=== PATIENT | male | born 1975 | race Caucasian/White ===

== ENCOUNTER 2017-08-12 12:24 | Observation (INO) | payer OTHER ==
[~2017-08-12] VITALS: Ht 177.8 cm; Wt 87.0 kg
[2017-08-12 13:28] VITALS: BP 129/79; PULSE 86; RESP 20; TEMP 97.7; O2SAT 99
[2017-08-12 15:26] LABS: AUTOMATED NEUTROPHIL # 3.7 TH/MM3 (1.8-7.7); BASOPHIL % 0.6 % (0.0-2.0); EOSINOPHIL % 0.3 % (0.0-4.0); HEMATOCRIT 40.3 % (39.0-51.0); HEMO FLAGS DIFF FINAL; LYMPH % 23.8 % (9.0-44.0); LYMPHOCYTE # 1.3 TH/MM3 (1.0-4.8); MEAN CELL VOLUME 93.1 FL (80.0-100.0); MEAN CORPUSCULAR HEMOGLOBIN 31.7 PG (27.0-34.0); NEUT % 66.3 % (16.0-70.0); PLATELET COUNT 212 TH/MM3 (150-450); RED BLOOD COUNT 4.33 MIL/MM3 (4.50-5.90); RED CELL DISTRIBUTION WIDTH 12.4 % (11.6-17.2); WHITE BLOOD COUNT 5.6 TH/MM3 (4.0-11.0)
[2017-08-12] MEDS ORDERED: ZANT150T2 PO (15:26)
[2017-08-12] MEDS ORDERED: MORPHINE SULFATE 2 MG/ML INJ IV PRN (15:30)
[2017-08-12] MEDS ORDERED: DIATRIZOATE MEGLUM/DIATRIZOATE SOD 9 ML CUP PO ONE (15:30)
[2017-08-12] MEDS ORDERED: ONDANSETRON HCL 4 MG/2 ML VIAL IV PUSH PRN (15:30)
[2017-08-12 15:40] LABS: POTASSIUM 3.8 MEQ/L (3.5-5.1)
[2017-08-12 16:00] VITALS: BP 132/77; PULSE 65; RESP 20; TEMP 97.2; O2SAT 100
[2017-08-12] MEDS: METRONIDAZOLE 500 MG/100 ML ISONTONIC SOLN IV SCH ×2 (16:29→21:55)
[2017-08-12] MEDS ORDERED: LEVOFLOXACIN 750 MG/DEXTROSE 150 ML IV SCH (17:00)
[2017-08-12] MEDS ORDERED: IOHEXOL 350 MG/ML 10 ML VIAL (for RAD DIAG) IVCONTRAST ONE (18:58)
--- NOTE | 2017-08-12 19:04 | RADRPT ---
EXAM DATE/TIME: 08/12/2017 18:45 [place] COMPARISON: No previous studies available for comparison. INDICATIONS : Lower abdomen pain, appendicitis. Post antibiotics. IV CONTRAST: 95 cc Omnipaque 350 (iohexol) IV ORAL CONTRAST: Prescribed oral contrast ingested. RADIATION DOSE: 7.49 CTDIvol (mGy) MEDICAL HISTORY : None SURGICAL HISTORY : None. ENCOUNTER: Initial ACUITY: 1 day PAIN SCALE: 8/10 LOCATION: Right lower quadrant TECHNIQUE: Volumetric scanning of the abdomen and pelvis was performed. Using automated exposure control and ad justment of the mA and/or kV according to patient size, radiation dose was kept as low as reasonably achievable to obtain optimal diagnostic quality images. DICOM format image data is available electro nically for review and comparison. FINDINGS: LOWER LUNGS: The visualized lower lungs are clear. LIVER: Homogeneous density without lesion. There is no dilation of the biliary tree. No calcified gallston es. SPLEEN: Normal size without lesion. PANCREAS: Within normal limits. KIDNEYS: Normal in size and shape. There is no solid mass, stone or hydronephrosis. There is a cyst in the lo wer pole of the right kidney. ADRENAL GLANDS: Within normal limits. VASCULAR: There is no aortic aneurysm. BOWEL/MESENTERY: The stomach, small bowel, and colon demonstrate no acute abnormality. There is no free intraperitone al air or fluid. The appendix is unremarkable in appearance with no evidence of appendicolith or infl ammatory change. The terminal ileum is within normal limits. There are scattered diverticuli greatest in the sigmoid colon. ABDOMINAL WALL: Within normal limits. RETROPERITONEUM: There is no lymphadenopathy. BLADDER: No wall thickening or mass. REPRODUCTIVE: Within normal limits. INGUINAL: There is no lymphadenopathy or hernia. MUSCULOSKELETAL: Within normal limits for patient age. CONCLUSION: 1. The appendix is unremarkable in appearance. 2. Mild diverticulosis. Solo Cleaning MD on August 12, 2017 at 18:59 Board Certified Radiologist. This report was verified electronically.
[2017-08-12 20:25] VITALS: BP 116/67; PULSE 88; RESP 18; TEMP 98.2; O2SAT 96
--- NOTE | 2017-08-12 20:31 | HHI.PR ---
Subjective Subjective Notes Persistent RLQ pain. Mild nausea after flagyl. Objective Vitals/I&O Vital Signs Date Time Temp Pulse Resp B/P (MAP) Pulse Ox O2 Delivery O2 Flow Rate FiO2 08/12/17 20:25 98.2 88 18 116/67 (83) 96 Labs Laboratory Tests Test 08/12/17 15:08 White Blood Count 5.6 Red Blood Count 4.33 Hemoglobin 13.7 Hematocrit 40.3 Mean Corpuscular Volume 93.1 Mean Corpuscular Hemoglobin 31.7 Mean Corpuscular Hemoglobin Concent 34.0 Red Cell Distribution Width 12.4 Platelet Count 212 Mean Platelet Volume 8.3 Neutrophils (%) (Auto) 66.3 Lymphocytes (%) (Auto) 23.8 Monocytes (%) (Auto) 9.0 Eosinophils (%) (Auto) 0.3 Basophils (%) (Auto) 0.6 Neutrophils # (Auto) 3.7 Lymphocytes # (Auto) 1.3 Monocytes # (Auto) 0.5 Eosinophils # (Auto) 0.0 Basophils # (Auto) 0.0 CBC Comment DIFF FINAL Differential Comment Blood Urea Nitrogen 9 Creatinine 0.83 Random Glucose 95 Calcium Level 8.9 Sodium Level 141 Potassium Level 3.8 Chloride Level 106 Carbon Dioxide Level 27.0 Anion Gap 8 Estimat Glomerular Filtration Rate 101 Narrative Exam NAD CV: RRR Lungs CTAB Abd: mod RLQ ttp A/P Assessment and Plan 42 yo M with simple appendicitis treated nonoperatively late last week. He had worsening pain and was admitted. WBC is normal. CT a/p read as normal although to me appendix appears mildly dilated. Plan to proceed tomorrow with laparoscopic possible open appendectomy due to known recent history appendicitis. Discussed case and situation in detail with the patient and his and they understand and desire to proceed. DamienBassam MD Aug 12, 2017 20:31
[2017-08-12] MEDS: LACTATED RINGER'S 1000 ML INJ 1,000 ML IV SCH (21:49)
[2017-08-13 00:07] VITALS: BP 101/56; PULSE 80; RESP 18; TEMP 98.2; O2SAT 98
[2017-08-13] MEDS ORDERED: LACTATED RINGER'S 1000 ML IV PRN (01:30)
[2017-08-13] MEDS ORDERED: CHLORHEXIDINE GLUCONATE 2 % 1 PACK (2 CLOTHS) TOPICAL PRN (01:30)
[2017-08-13] MEDS ORDERED: POVIDONE IODINE 5% (ANTISEPSIS KIT) 4 APPLICATIONS EACH NARE PRN (01:30)
[2017-08-13] MEDS: METRONIDAZOLE 500 MG/100 ML ISONTONIC SOLN IV SCH (04:08)
[2017-08-13] MEDS: LACTATED RINGER'S 1000 ML INJ 1,000 ML IV SCH (05:00)
[2017-08-13 05:07] VITALS: BP 108/64; PULSE 85; RESP 18; TEMP 97.9; O2SAT 98
[2017-08-13] MEDS ORDERED: BUPIVACAINE/EPINEPHRINE 0.5% 50 ML VIAL ONE (05:35)
[2017-08-13] MEDS ORDERED: ACETAMINOPHEN 1000 MG/100 ML 100 ML IV ONE (05:49)
[2017-08-13] MEDS ORDERED: MORPHINE SULFATE 2 MG/ML INJ IV PUSH PRN (06:45)
[2017-08-13] MEDS ORDERED: OXYC1TAB63 PO (06:45)
[2017-08-13] MEDS ORDERED: oxyCODONE/ACETAMINOPHEN 5 MG/325 MG TAB PO PRN (06:45)
--- NOTE | 2017-08-13 06:49 | PD.OP ---
cc: Bassam Quezada MD Operative Report Date of Surgery: Aug 13, 2017 Preoperative Diagnosis: (1) Appendicitis Postoperative Diagnosis: (1) Appendicitis Procedure: Laparoscopic appendectomy Anesthesia: GETA Surgeon: Bassam Quezada Greens Picker(s): Sumeet NICKERSON Operation and Findings: EBL: 5 cc Complications: None apparent Operative findings: The appendix was somewhat dilated but did not appear acutely inflamed. There was no purulent fluid. Procedure in detail: The patient was taken to the operating room placed in the supine position with left arm tucked. General endotracheal anesthesia was induced and the abdomen was prepped and draped in usual sterile fashion. Surgical timeout was performed to verify correct patient procedure and site. Perioperative antibiotics were administered as necessary. Local anesthetic was injected in the skin and subcutaneous tissue at the left lower abdomen and a 5 mm incision made. Using the 5 mm Optiview trocar with laparoscope the abdomen was directly entered. The abdomen was then insufflated to 15 mmHg with CO2 gas which the patient tolerated well. The patient was then placed in Trendelenburg position and turned slightly to the left. A 12 mm port was placed under laparoscopic visualization in the suprapubic area and a 5 mm port in the supraumbilical area. Attention was turned to the right lower quadrant and the appendix was wrapped around itself somewhat. It was mildly dilated but did not appear acutely inflamed.. The mesoappendix was taken down with the Harmonic scalpel. Two #1 PDS Endoloops were placed at the base the appendix and the appendix transected with Harmonic scalpel. It was then removed using an Endo Catch bag. The appendiceal stump was intact with no leakage. There was no purulent fluid identified in the abdomen was allowed to desufflate. The fascia at the 12 mm port site was closed with a single 0 Vicryl suture. Skin closed with subcuticular Monocryl as well as Dermabond. The patient tolerated the procedure well was extubated and taken to PACU in stable condition. Bassam Quezada MD Aug 13, 2017 06:49
[2017-08-13] MEDS ORDERED: DO NOT ADM ANY ANTICOAGULANT DRUGS PRN (07:10)
[2017-08-13] MEDS ORDERED: *morphine SULFATE 8 MG/ML PERIprocedure ONLY ONE (07:45)
[2017-08-13] MEDS: oxyCODONE/ACETAMINOPHEN 5 MG/325 MG TAB PO PRN ×2 (11:14→16:47)
[2017-08-13 12:00] VITALS: BP 106/65; PULSE 119; RESP 16; TEMP 98.8; O2SAT 97
[2017-08-13] MEDS ORDERED: LIDOCAINE HCL 1% PF 5 ML AMPULE OTHER ONE (12:00)
[2017-08-13] MEDS ORDERED: ROCURONIUM INJ 50 MG/5 ML SYRINGE IV PUSH ONE (12:00)
[2017-08-13] MEDS ORDERED: GLYCOPYRROLATE 1 MG/5 ML SYRINGE IV PUSH ONE (12:00)
[2017-08-13] MEDS ORDERED: LACTATED RINGER'S 1000 ML INJ 1,000 ML IV ONE (12:00)
[2017-08-13] MEDS ORDERED: NEOSTIGMINE 3 MG/3 ML SYR IV ONE (12:00)
[2017-08-13] MEDS ORDERED: ONDANSETRON HCL 4 MG/2 ML VIAL IV PUSH ONE (12:00)
[2017-08-13] MEDS ORDERED: KETOROLAC TROMETHAMINE 30 MG/ML (IVP) VIAL IV PUSH ONE (12:00)
[2017-08-13] MEDS ORDERED: DEXAMETHASONE SOD PHOS 4 MG/ML VIAL IV ONE (12:00)
[2017-08-13] MEDS ORDERED: PROPOFOL 200 MG/20 ML AMP IV ONE (12:00)
[2017-08-13] MEDS ORDERED: MIDAZOLAM HCL 2 MG/2 ML VIAL IV ONE (12:00)
[2017-08-13 16:00] VITALS: BP 105/69; PULSE 101; RESP 16; TEMP 97.3; O2SAT 100
== END 2017-08-13 16:55 | disposition home or self-care (01) ==
LOC: N07B 12:38
PROVIDERS: ADMIT Surgery; ATTEND Surgery
DX: K35.80 Unspecified acute appendicitis (principal)
CPT/HCPCS: 00840; 44970; 74177; 80048; 85025; 88304; 96365; 96375; G0378; J0131; J1100; J1885; J1956; J2250; J2270; J2405; J2710; J3010; J7120; Q9963; Q9967